=== PATIENT | female | born 1960 | race Caucasian/White ===

== ENCOUNTER 2020-01-04 17:57 | Inpatient (IN) | payer OTHER ==
[~2020-01-04] VITALS: Ht 165.1 cm; Wt 88.5 kg
--- NOTE | ~2020-01-04 | O ---
[facility] [place] [address] OPERATIVE REPORT Name: MAICO ESCALONA Room #: 464-P ADM IN M.R.#: [id number] Admission: 01/04/20 Attend Phys: Stanley Bean MD Discharge: Date of : 58 Report #: [id number] THIS REPORT FOR: cc: ATIF - Nataliya family physician/PCP ATIF - Nataliya family physician/PCP Dino Carlson MD ~ CC: Stanley SRIVASTAVA physician/PCP DATE OF SERVICE: 01/05/2020 PREOPERATIVE DIAGNOSIS: Left perirectal abscess. POSTOPERATIVE DIAGNOSIS: Left perirectal abscess. OPERATION: Incision and drainage of ischiorectal abscess. SURGEON: Dino Carlson MD ANESTHESIA: General. ESTIMATED BLOOD LOSS: Minimal. SPECIMEN: None. DESCRIPTION OF PROCEDURE: After informed consent was obtained, the patient was brought to the operating room and placed supine. SCDs were placed and working, preoperative antibiotics were administered, general anesthesia was induced. The patient was placed in the dorsal lithotomy position and the area was then prepped with Betadine. Digital rectal exam was performed. This did not have any rectal involvement. There was an area of fluctuance approximately 3 cm from the anal verge on the left side. This was incised with cautery. A 2 x 2 cm elliptical skin incision was removed. Pus was expressed. Loculations were broken up bluntly. This did extend down to the ischium. The area was then copiously irrigated and then was packed with iodoform gauze. Sterile dressings were applied. COMPLICATIONS: None. DISPOSITION: The patient was taken to recovery in satisfactory condition. By: [id number] Dino Carlson MD /nt
--- NOTE | ~2020-01-04 | O ---
[facility] [place] [address] OPERATIVE REPORT Name: MAICO ESCALONA Room #: 464-P ADM IN M.R.#: [id number] Admission: 01/04/20 Attend Phys: Stanley Bean MD Discharge: Date of : 58 Report #: [id number] THIS REPORT FOR: cc: ATIF - Nataliya family physician/PCP ATIF - No family physician/PCP Dino Carlson MD ~ CC: Stanley SRIVASTAVA physician/PCP DATE OF SERVICE: 01/08/2020 PREOPERATIVE DIAGNOSIS: Right gluteal abscess. POSTOPERATIVE DIAGNOSIS: Right gluteal abscess. OPERATION: Incision and drainage of right gluteal abscess. SURGEON: Dino Carlson MD ANESTHESIA: General. ESTIMATED BLOOD LOSS: Minimal. SPECIMEN: None. DESCRIPTION OF PROCEDURE: After informed consent was obtained, the patient was brought to the operating room and placed supine. SCDs were placed and working, preoperative antibiotics were administered, general anesthesia was induced. The patient was placed in the dorsal lithotomy position. She had an area of fluctuance near the coccyx on the right side. A 3 x 3 cm cruciate incision was made. Cautery dissection was made down through the subcutaneous tissue. There was some edema fluid, but there was no richy pus. Loculations were broken up with a clamp. The area was then packed with sterile gauze. Sterile dressings were applied. COMPLICATIONS: None. DISPOSITION: The patient was taken to recovery in satisfactory condition. By: 1159 [id number] Dino Carlson MD /ayna
[~2020-01-04 17:57] MED LIST: IMDUR 60 MG TAB60 M1 PO; LISINOPRIL20 MG PO; LOPRESSOR50 PO; PREDNISONE 20 M20 MG PO
[2020-01-04 18:06] VITALS: BP 200/87
[2020-01-04] MEDS ORDERED: NOVOLIN 70100 UNIT/1 SUBQ (18:11)
[2020-01-04 19:23] LABS: HEMOGLOBIN 14.3 gm/dL (12.0-15.0); MCH 30.5 pg (26.0-34.0); MCHC 33.9 g/dL (28.0-37.0); MCV 89.8 fL (80.0-100.0); PLATELET COUNT 306 thou/uL (150-400); RBC 4.68 mil/uL (4.20-5.00); RDW 13.4 % (10.5-14.5); WBC 16.1 thou/uL (4.0-11.0)
[2020-01-04 19:37] LABS: ANION GAP 8 mmol/L (7-16); BUN 17 mg/dL (7-18); CALCIUM 8.9 mg/dL (8.5-10.1); CHLORIDE 98 mmol/L (98-107); CO2 25 mmol/L (21-32); GLUCOSE 392 mg/dL (74-106); POTASSIUM 3.9 mmol/L (3.5-5.1); SODIUM 131 mmol/L (136-145)
[2020-01-04 19:43] LABS: SGOT 13 U/L (15-37); SGPT 13 U/L (30-65); TOTAL BILIRUBIN 0.5 mg/dL (0.2-1.0); TOTAL PROTEIN 7.4 g/dL (6.4-8.2)
[2020-01-04 19:44] LABS: ABSOLUTE NEUTROPHILS 13.4 thou/uL (1.4-8.2); LARGE PLATELETS FEW; PLATELET ESTIMATE NORMAL
[2020-01-04 19:53] LABS: DIRECT BILIRUBIN < 0.1 mg/dL (<0.1-0.2)
[2020-01-04 22:36] LABS: CHOLESTEROL 159 mg/dL (<200); HDL CHOLESTEROL 27 mg/dL (>40); LDL CHOLESTEROL 111 mg/dL (<100); TC:HDL 5.9 Ratio (Not establshd); TRIGLYCERIDE 108 mg/dL (<150); VLDL 22 mg/dL (<40)
[2020-01-04 22:56] LABS: SERUM ASSESSMENT Clear
[2020-01-04 23:20] VITALS: BP 155/77
[2020-01-05] MEDS ORDERED: UNICOMPLEX M TA1 TA1 PO (02:05)
[2020-01-05] MEDS ORDERED: SIMVASTATIN80 MG PO (02:07)
[2020-01-05 05:13] VITALS: BP 169/89
[2020-01-05 05:38] LABS: BASOPHILS 0.7 % (0.0-2.0); EOSINOPHILS 1.7 % (0.0-3.0); HEMOGLOBIN 12.6 gm/dL (12.0-15.0); MCH 30.1 pg (26.0-34.0); MCHC 33.2 g/dL (28.0-37.0); MCV 90.6 fL (80.0-100.0); MONOCYTES 7.8 % (1.0-8.0); PLATELET COUNT 291 thou/uL (150-400); POLYS 81.8 % (36.0-66.0); RBC 4.19 mil/uL (4.20-5.00); RDW 13.4 % (10.5-14.5); WBC 15.9 thou/uL (4.0-11.0)
[2020-01-05 06:09] LABS: CALCIUM 8.2 mg/dL (8.5-10.1); CREATININE 0.6 mg/dL (0.6-1.0); MAGNESIUM 1.8 mg/dL (1.8-2.4); POTASSIUM 3.9 mmol/L (3.5-5.1)
--- NOTE | 2020-01-05 08:44 | NUR ---
ADMIT PT ADMITTED WITH RIGHT AND LEFT BUTTOCK ABSCESSES. RATING PAIN AN 8 TAKING HYDROCODONE AND MORPHINE WITH EFFECT. PICTURES TAKEN WOUNDS CIRCULAR FLAT DRAINING BLOODY PURULENT DRAINAGE AND SOME SEROUS DRAINAGE, OPEN TO AIR CLEANSED WITH SALINE. PT UP AD OLVIN IV FLUIDS INFUSING WITHOUT DIFFICULTY.
[2020-01-05 09:22] VITALS: BP 133/74
--- NOTE | 2020-01-05 16:25 | NUR ---
PT ADMITTED RELATED TO GLUTEAL FOLD CELLULITIS. CM REVIEWED CHART AND SPOKE WITH CARE TEAM. CM CALLED AND SPOKE WITH PT AT BEDSIDE THIS DAY. PT IS A&O X4. CM ROLE INTRODUCED. PT INDICATED SHE LIVES IN AN APARTMENT WITH HER SPOUSE WITH 5 STEPS TO ENTER AND NONE INSIDE. 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 PT INDICATED SHE HAS A CANE FOR USE UPON DC. PT INDICATED SHE DOESN'T HAVE A PCP AND THAT SHE IS CURRENTLY UNINSURED. SHE STATED SHE STARTS A NEW JOB ON WEDNESDAY AND ANTICPATES SHE WILL GET INSURANCE ONCE ABLE THROUGH EMPLOYER. PT INDICATED SHE WOULD APPRECIAT ASSITANCE WITH MEDS UPON DC. PT RECEPTIVE TO [facility] PACKET. CM FOLLOWING REGARDING DC PLANNING.
--- NOTE | 2020-01-05 16:59 | NUR ---
Assumed pt care at 7am.Pt in bed frustrated about perirectal abscess.Pain med given by noc rn at the beginning of shift with relief.Assessment completed. vss.Pt bp reading this am was better.Pt tolerated am meds.Dr Roman and Lorenza here,order noted.Pt kept npo for i&d scheduled for this evening.Po pain med given before pt left for surgery at 1610 per cart.Will continue to monitor.
--- NOTE | 2020-01-05 19:15 | NUR ---
Pt. returned from the recovery room via staff. She is alert and oriented. Dressing to her antoni-rectal area is intact. VSS. Up to the bathroom with standby assistance. C/o antoni-rectal pain and po pain med given (see emar).
[2020-01-05 19:25] VITALS: BP 118/52
[2020-01-05 19:40] VITALS: BP 143/64
[2020-01-05 20:25] VITALS: BP 115/59
[2020-01-05 21:25] VITALS: BP 104/59
[2020-01-06 00:06] LABS: GLYCOHEMOGLOBIN (HGB A1C) 11.4 % (4.8-5.6)
[2020-01-06 02:07] LABS: GLYCOHEMOGLOBIN (HGB A1C) 11.6 % (4.8-5.6)
[2020-01-06 05:00] VITALS: BP 127/65
[2020-01-06 05:43] LABS: HEMATOCRIT 35.7 % (37.0-47.0); HEMOGLOBIN 11.8 gm/dL (12.0-15.0); MCV 90.9 fL (80.0-100.0); RBC 3.93 mil/uL (4.20-5.00); RDW 13.2 % (10.5-14.5); WBC 16.7 thou/uL (4.0-11.0)
[2020-01-06 05:56] LABS: CALCIUM 8.6 mg/dL (8.5-10.1); CREATININE 0.7 mg/dL (0.6-1.0); POTASSIUM 4.3 mmol/L (3.5-5.1)
[2020-01-06 07:00] VITALS: BP 140/65
--- NOTE | 2020-01-06 11:40 | HC ---
[facility] [place] [address] CONSULTATION Name: MAICO ESCALONA Room #: 464-P ADM IN M.R.#: [id number] Admission: 01/04/20 Attend Phys: Stanley Bean MD Discharge: Date of : 58 Report #: [id number] THIS REPORT FOR: cc: ATIF An family physician/PCP ATIF An family physician/PCP Malcolm Marrufo MD ~ CC: Stanley SRIVASTAVA physician/PCP DATE OF SERVICE: 01/05/2020 CONSULTING PHYSICIAN: Dr. Bean. REASON FOR CONSULTATION: Uncontrolled type 2 diabetes mellitus, hyperglycemia. HISTORY OF PRESENT ILLNESS: This is a 59-year-old female patient whose medical background is significant for multiple medical issues including type 2 diabetes mellitus, hypertension, hyperlipidemia, obesity, as well as significant coronary artery disease. The patient presented to the ER yesterday due to worsening boils over the left gluteal region that have gotten worse over the past week or so. She started having low-grade fever and chills in association with these boils, which led her to present here. She was admitted for further care and monitoring. The patient has been diagnosed with type 2 diabetes mellitus about 5 years ago. She has had limited therapeutic options due to the lack of health care coverage and is currently utilizing Humulin 70/30 insulin at a dose of 20 units b.i.d. The patient recalls that metformin had caused severe GI side effects in the past. The patient is not aware of diabetic retinopathy or nephropathy issues, but does report intermittent difficulties with peripheral diabetic neuropathy. The patient had an CT in 2004 and ended up with 5 stents back then. She ended up having a major coronary event in February 2019 and was considered for CABG, but proved to be an inappropriate candidate for this and ended up with [address]. She is also hypertensive and is maintained on metoprolol and lisinopril. She has hyperlipidemia and is maintained on simvastatin 40 mg daily. REVIEW OF SYSTEMS: CONSTITUTIONAL: Low-grade fever, chills, fatigue. No changes in body weight. HEENT: Negative for sore throat, sinus pain or ear drainage. PULMONARY: No shortness of breath, cough or hemoptysis. CARDIAC: Negative for chest pain, palpitations, syncope or presyncope. GASTROINTESTINAL: Negative for abdominal pain, nausea, vomiting or changes in bowel movement frequency. [facility] [address] [place] [address] CONSULTATION Name: MAICO ESCALONA Room #: 464-P [facility] IN ..#: [id number] Admission: 01/04/20 Attend Phys: Stanley Bean MD Discharge: Date of : 58 Report #: [id number] NEUROLOGY: Negative for loss of consciousness, seizure activities, frequent severe headaches, but the patient has baseline neuropathy issues as noted above. PSYCHIATRIC: Negative for delusions, hallucinations. Otherwise, review of system is noncontributory unless mentioned in HPI. PAST MEDICAL HISTORY: 1. Type 2 diabetes mellitus. 2. Peripheral diabetic neuropathy. 3. Hypertension. 4. Hyperlipidemia. 5. Coronary artery disease, status post multiple cardiac stents. 6. Obesity. OUTPATIENT MEDICATIONS: Lisinopril 20 mg daily, metoprolol 50 mg daily, Imdur 60 mg daily, Novolin 70/30 insulin at a dose of 20 units b.i.d., simvastatin 40 mg daily. ALLERGIES: No known drug allergies. FAMILY HISTORY: Noncontributory. 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 Denies use of tobacco, alcohol or illicit drugs. PHYSICAL EXAMINATION: GENERAL: Pleasant female patient who is not in apparent pain or distress. VITAL SIGNS: Blood pressure is 133/74 mmHg, heart rate is 65 beats per minute, respiration 18 per minute, temperature 36.8 degrees Celsius. CONSTITUTIONAL: The patient is lying in bed, seems a bit uncomfortable, but not in severe pain or distress. HEENT: Anicteric sclerae. Intact extraocular motions. NECK: Supple, without JVD or thyromegaly. CHEST: Noted for good air entry bilaterally with scattered rales. HEART: Regular rate and rhythm without murmurs or gallops. ABDOMEN: Soft, lax. No guarding. Active bowel sounds. EXTREMITIES: Lower extremity exam is noted for trace edema. No skin breaks or ulcerations. NEUROLOGIC: Awake, alert and oriented to place and person. The remainder of her examination is largely nonfocal. PSYCHIATRY: Pleasant, interactive. Normal mood and affect. LABORATORY RESULTS: The patient had 1 blood glucose reading recorded at 260 mg/dL. Otherwise, sodium 134, potassium 3.9, chloride 101, CO2 19, anion gap of 14, BUN 9, creatinine 0.6, AST 13, total bilirubin 0.5, calcium 8.2, magnesium 1.8, alkaline phosphatase is 110, ALT 13, total protein 7.4, albumin 3.0. [facility] [address] [place] [address] CONSULTATION Name: MAICO ESCALONA Room #: 464-P ADM IN M.[place].#: [id number] Admission: 01/04/20 Attend Phys: Stanley Bean MD Discharge: Date of : 58 Report #: [id number] 102. Lactic acid 1.7. Total cholesterol 159, triglycerides 108, HDL 27, LDL 111. White blood count 15.9, hemoglobin 12.6, hematocrit 38, platelets 291. ASSESSMENT AND PLAN: 1. Type 2 diabetes mellitus. The patient reports an outlook of inadequately controlled type 2 diabetes mellitus, which is made more difficult by her current access and financial limitations. The patient was counseled at length about the pathogenesis of type 2 diabetes mellitus and about the importance of achieving and maintaining adequate glycemic control so as to avoid diabetic complications in the future. The patient is being planned for surgery later today and is being maintained n.p.o. That said, I am eager to get her started on insulin coverage with her blood glucose heading to 260. That said, I will start her on Lantus at 22 units daily starting now as well as coverage with Humalog insulin with 8 units per meal while supporting her with Humalog supplemental scale. Blood glucose monitoring will commence a.c. and at bedtime and further therapeutic adjustments will be made accordingly. I will check a hemoglobin A1c today to better assess her overall level of control. 2. Hypertension. The patient's level of blood pressure control is adequate, she is to continue with current antihypertensive regimen. 3. Hyperlipidemia. The patient is maintained on simvastatin therapy, but with inadequate lipid control given her background of type 2 diabetes mellitus and coronary artery disease. I will convert her to atorvastatin 40 mg daily. 4. Cellulitis. The patient is being prepared for an I and D procedure later today. In the meantime, she is on vancomycin and ceftriaxone. I certainly appreciate this consultation by Dr. Bean. <ELECTRONICALLY SIGNED> By: Malcolm Marrufo MD 01/06/20 1140 1207 [id number] Malcolm Marrufo MD /nt
[2020-01-06 14:54] VITALS: BP 133/66
--- NOTE | 2020-01-06 15:25 | NUR ---
ASSUMED CARE OF THE PT, ASSESSED, PT RESTING IN BED, ASKED FOR PAIN MED FOR BUTTOCK PAIN "01/02", GAVE A NORCO. REVIEWED POC, PT VERBALIZED UNDERSTANDING, CALL LIGHT AT SIDE, WILL MONITOR
--- NOTE | 2020-01-06 15:55 | NUR ---
Assumed pt care at 7am.Assessment completed.vss.Pt in and out of bed independently.Tolerated med and diet.C/o perirectal pain.Meds given as ordered with relief.Dr Bean and Roger here early this shift.Order noted.Blood sugar was on high side today.Additional lantus given later this after per Dr Saba.Perirectak drsg intact and will be change later this evening after seen by Dr Lara.Report off to kinga bernal.
[2020-01-06 20:18] VITALS: BP 132/64
--- NOTE | 2020-01-07 04:01 | NUR ---
ASSUMED CARE OF PT AT 1900HRS. PT AOX4 AND UP AD OLVIN. PT LETS NEEDS BE KNOWN. PT REPORTED SOME PAIN AND WAS TREATED WITH PRN PAIN MEDS. DRESSING CHANGED. ABX TREATMENT CONTINUED. PT WAS ABLE TO GET COMFORTABLE AND SLEEP PART OF THE SHIFT. VSS AND NO S/S OF ACUTE DISTRESS. WILL CONTINUE TO [place] FOR CHANGES
--- NOTE | 2020-01-07 06:01 | HC ---
[facility] [place] [address] CONSULTATION Name: MAICO ESCALONA Room #: 464-P ADM IN M.R.#: [id number] Admission: 01/04/20 Attend Phys: Stanley Bean MD Discharge: Date of : 58 Report #: [id number] THIS REPORT FOR: cc: ATIF - No family physician/PCP ATIF - No family physician/PCP Adrian Duran MD ~ CC: Stanley SRIVASTAVA physician/PCP DATE OF SERVICE: 01/06/2020 INFECTIOUS DISEASE CONSULTATION ATTENDING PHYSICIAN: Dr. Bean. REASON FOR EVALUATION: Left perirectal abscess. HISTORY OF PRESENT ILLNESS: Chart reviewed, patient examined. This is a 59-year-old woman with known diabetes mellitus, presented to the Emergency Room with a brief complaint of increasing perineal pain, noted spontaneous drainage of some purulent material. She had some temperature elevations. She was evaluated including imaging, which raised question of a left perirectal abscess. She did undergo operative debridement, which was confirmatory, noted extended down to the ischium. She has been started on broad-spectrum therapy with vancomycin and ceftriaxone. She is clinically much improved over the course of last 24 hours. Denies significant pulmonary complaints. She has good appetite, has not been febrile over the last several hours. ALLERGIES: None known. MEDICATIONS: Include insulin, famotidine, lisinopril, isosorbide mononitrate, atorvastatin, metoprolol, ceftriaxone, vancomycin, p.r.n. analgesics and antiemetics. PAST MEDICAL HISTORY: Diabetes mellitus, history of hypertension, hyperlipidemia, has known atherosclerotic coronary artery disease, previous stenting. SOCIAL HISTORY: Former smoker. No ethanol. No illicit drug use. FAMILY HISTORY: Noncontributory. REVIEW OF SYSTEMS: As above. PHYSICAL EXAMINATION: GENERAL: She is alert, cooperative, appropriate. She appears reasonably well [facility] [address] [place] [address] CONSULTATION Name: MAICO ESCALONA Room #: 464-P [facility]#: [id number] Admission: 01/04/20 Attend Phys: Stanley Bean MD Discharge: Date of : 58 Report #: [id number] nourished, mild distress. VITAL SIGNS: Temperature 97.6, pulse 78, respirations 17, blood pressure 140/65. SKIN: Warm, dry, no rashes. HEENT: Normocephalic. Extraocular muscles intact. NECK: Supple. LUNGS: Otherwise clear breath sounds. HEART: Regular. I do not appreciate murmur. ABDOMEN: Soft, nontender. Perineal dressing was not disturbed. GENITORECTAL: Deferred. LABORATORY DATA: Blood cultures are sterile thus far. Most recent electrolytes: Sodium 134, potassium 4.3, chloride 102, bicarbonate is 21, anion gap of 11, BUN and creatinine 14 and 0.7. CBC: White count 16.7, H and H 11.8 and 35.7, platelets 279. Hemoglobin A1c is elevated at 11.6. Estimated average glucose of 286. Reviewed operative report. Coronavirus screening was negative. ASSESSMENT AND PLAN: Left perirectal abscess. We will continue current therapy. It is not entirely clear whether this is primarily a progression from superficial to deeper "outside, in or vice versa." There is no evidence I can tell there is a primary colonic initial source. At this point, she is not overtly toxic. We will wait for results. Continue to monitor expectantly. Add incentive spirometry to optimize her nutritional status. Wound care as prescribed by Surgery. <ELECTRONICALLY SIGNED> By: Adrian Duran MD 01/07/20 0601 [id number] 1101 Adrian Duran MD /nt
[2020-01-07 09:00] VITALS: BP 153/77
--- NOTE | 2020-01-07 11:28 | NUR ---
DR DOLL HERE TO SEE PATIENT LOOKED AT GLUTEAL CLEFT WOUND LEFT BUTTOCK WANTS THIS NURSE TO CALL DR PRECIADO OR GROUP TO ALSO LOOK AT HE THIMKS IT NEEDS TO BE OPENED. CALL TO DR PRECIADO.
[2020-01-07 18:28] VITALS: BP 156/76
[2020-01-07 19:47] VITALS: BP 152/76
[2020-01-07 23:05] VITALS: BP 152/76
[2020-01-08 06:08] LABS: HEMATOCRIT 32.7 % (37.0-47.0); HEMOGLOBIN 11.2 gm/dL (12.0-15.0); MCH 30.7 pg (26.0-34.0); MCHC 34.4 g/dL (28.0-37.0); MCV 89.3 fL (80.0-100.0); RBC 3.66 mil/uL (4.20-5.00); RDW 13.5 % (10.5-14.5); WBC 11.3 thou/uL (4.0-11.0)
--- NOTE | 2020-01-08 07:48 | NUR ---
PT AOX4. PT REPORTING PAIN IN GLUTEAL CLEFT. PT RECEIVING PRN IV MORPHINE Q3HR AND PRN PO NORCO Q4HR. PT ASSESSED WITH 100.0 TEMP. MANAGER SCHEDULING PROVIDER NOTIFIED, RECEIVED ORDER FOR PO APAP 650MG Q6HR PRN FOR PAIN/FEVER. PT TOLERATING PO INTAKE OF FLUIDS, NPO AT MIDNIGHT. PT EXPERIENCING BREAKTHROUGH PAIN AFTER MIDNIGHT. MANAGER SCHEDULING PROVIDER NOTIFIED, RECEIVED ORDER FOR PT TO BE NPO WITH SIPS OF WATER FOR MEDS. PT AMBULATING TO BATHROOM WITH STANDBY ASSIST. PT INDEPENDENT WITH REPOSITIONING, FREQUENT REPOSITIONING ENCOURAGED. PT ENCOURAGED TO NOTIFY STAFF FOR ALL NEEDS. CALL LIGHT WITHIN REACH, BED IN LOWEST POSITION. WILL CONTINUE TO MONITOR.
[2020-01-08 08:00] VITALS: BP 161/83
--- NOTE | 2020-01-08 09:21 | NUR ---
Assess due to dx of gluteal abscess which has required I/D on 01/04. Hx diabetes about 5 yrs, poorly controlled with A1C of 11.6%. Endocronologist has been following, changed insulin requirements and BG significantly improving 86-143. Pt voices good appetite, no significant wt changes, and no questions regarding diet for diabetes. 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 Eating high protein foods. Low nutrition risk
--- NOTE | 2020-01-08 11:26 | NUR ---
Assumed pt care at 7am.Pt in bed very anxious about going to surgery today for additional i&d of perirectal abscess.Medicated pt with both po and iv pain med with partial relief.Dr Saba here,order noted.At 1030,pt left surgery accompanied by or tech.Will continue to monitor.
[2020-01-08 14:30] VITALS: BP 181/92
--- NOTE | 2020-01-08 15:28 | NUR ---
CARE TEAM INDICATED THAT PT IS HAVING I&D OF RIGHT CLUTEAL ABSESSES THIS DAY. IT IS ANTICPATED THAT PT MAY BE MEDICALLY STABLE TO DC HOME TOMORROW. PT WILL LIKELY NEED ASSISTANCE IN FILLING MEDS UPON DC. CM TO FOLLOW INDICATED WITH DC PLANNING.
[2020-01-08 15:30] VITALS: BP 127/63
[2020-01-08 16:30] VITALS: BP 122/67
[2020-01-08 19:59] VITALS: BP 158/76
[2020-01-08 20:01] VITALS: BP 158/76
--- NOTE | 2020-01-09 04:07 | NUR ---
PROGRESS PT A/O X4. VSS IV TO RIGHT FOREARM INFUSING IVF'S WITHOUT DIFFICULTY. UP AD OLVIN TO BATHROOM VOIDING QS. HAD A BM EARLIER IN THE DAY HAD INCISION AND DRAINAGE TO GLUTEAL CLEFT [address] ARE[address], CLEFT NOT MACERATED IT WAS ON PRIOR SHIFT CONTINUE POC..
[2020-01-09] MEDS ORDERED: HYDROCODON-ACE1 EAC7 PO (08:20)
[2020-01-09] MEDS ORDERED: LISINOPRIL20 MG PO (08:20)
[2020-01-09] MEDS ORDERED: LOPRESSOR50 PO (08:20)
[2020-01-09] MEDS ORDERED: KEFLEX500 M1 PO (08:24)
[2020-01-09 09:35] VITALS: BP 170/70
[2020-01-09 11:04] VITALS: BP 170/70
[2020-01-09] MEDS ORDERED: NOVOLIN 70100 UNIT/1 SUBQ (13:53)
[2020-01-09] MEDS ORDERED: LANTUS SUBQ ×2 (14:22→14:26)
[2020-01-09] MEDS ORDERED: HUMALOG100 UNIT/1 SUBQ ×2 (14:26)
--- NOTE | 2020-01-09 15:05 | NUR ---
CARE TEAM INDICATED THAT PT IS MEDICALLY STABLE TO DC HOME THIS DAY. CM VOUCHERED PT'S MEDS KEFLEX, LISINOPRIL, AND METOPROLOL AT THE COST OF $28.37. PT INDICATED THAT SHE HAD BEEN GETTING HER INSULIN AT [facility] AND THAT SHE CAN/WILL CONTINUE TO DO SO. PT PROVIDED INFO ABOUT [facility] AT [facility] AND GIVEN A [facility] PACKET. PT INDICATED SPOUSE CAN ASSIST WITH DRESSING CHANGES UPON DC. NO OTHER CM INTERVENTION INDICATED. CASE CLOSED.
--- NOTE | 2020-01-09 15:30 | NUR ---
Assumed pt care at 7am.Pt in nand out of bed to bathroom and hallways independently.Assessment completed.vss.Pt tolarated meds and diet.Dr Bean here early this shift.Dc order noted.Pt wanted to see wound care before dc home. Dr Obrien here,additional order noted.Wound picture taken by broomcorn press feeder. drsg supplies given to pt for home use.At 1530,pt dc home per wc .
--- NOTE | 2020-01-17 08:07 | HC ---
[facility] [place] [address] CONSULTATION Name: MAICO ESCALONA Room #: 464-P [facility] IN M.R.#: [id number] Admission: 01/04/20 Attend Phys: Stanley Bean MD Discharge: 01/09/20 Date of : 58 Report #: [id number] THIS REPORT FOR: cc: ATIF - Nataliya family physician/PCP ATIF - No family physician/PCP Wei Jurado MD ~ CC: Stanley SRIVASTAVA physician/PCP DATE OF SERVICE: 01/05/2020 WOUND CARE CONSULTATION PERSONAL PHYSICIAN: Not on staff. CHIEF COMPLAINT: Gluteal wounds. HISTORY OF PRESENT ILLNESS: This is a 59-year-old white female with history of diabetes, who states over the past several days, she has had persistent pain and swelling in her left gluteal fold and paracoccygeal region. The patient states that she has had previous history of gluteal abscesses which she was able to treat by herself with topical treatments and Epsom salt baths. She tried this past week and things seemed to get worse instead of better. The patient states as of yesterday, the pain got so bad, she came to the Emergency Department to be evaluated. The patient was found on a CAT scan to have infection in her bilateral gluteal cleft regions and cellulitis extending up into the paracoccygeal region. There was no sign of any obvious abscesses. The patient was admitted for IV antibiotics, surgical evaluation and wound care evaluation. The patient states she has no other wounds on her body. The patient denies any other history of wounds that would not heal on their own. PAST MEDICAL HISTORY: Significant for coronary artery disease with multiple coronary artery stents, hypertension and diabetes. CURRENT MEDICATIONS: Multiple including metoprolol, lisinopril, Imdur, and Novolin. DRUG ALLERGIES: None. SOCIAL HISTORY: The patient has a history of former smoking, quitting approximately 20 years ago. Denies alcohol use. FAMILY HISTORY: Not pertinent to current medical condition. REVIEW OF SYSTEMS: CONSTITUTIONAL: The patient states she had a low-grade fever and associated [facility] [address] [place] [address] CONSULTATION Name: MAICO ESCALONA Room #: 464-P [facility] IN M.R.#: [id number] Admission: 01/04/20 Attend Phys: Stanley Bean MD Discharge: 01/09/20 Date of : 58 Report #: [id number] chill in the past 24 hours. EYES: No complaints. ENT: No complaints. NEUROLOGIC: The patient denies headache, numbness, tingling, denies weakness in arms or legs. CARDIAC: The patient denies chest pain, palpitations, or peripheral edema. RESPIRATORY: The patient denies shortness of breath, cough or wheezes. GASTROINTESTINAL: The patient denies nausea, vomiting or abdominal pain. GENITOURINARY: The patient denies urgency or frequency. MUSCULOSKELETAL: No complaints. SKIN: There are multiple wounds in the bilateral gluteal cleft region. PHYSICAL EXAMINATION: VITAL SIGNS: The patient is afebrile. BP is 133/74, heart rate is 88, respirations 18. GENERAL: This is an alert and oriented x 3, pleasant white female who is in mild distress secondary to pain. HEENT: Normocephalic, atraumatic. Mucous membranes are moist. Pupils are round. Sclerae are white. NECK: Supple, nontender. LUNGS: Clear. HEART: Regular. ABDOMEN: Soft, nontender. Evaluation of gluteal region reveals extensive subcutaneous edema with purulent drainage coming from multiple sites, exquisitely tender left gluteal cleft more than right. There is increased erythema, warmth to the sites. EXTREMITIES: The patient moves all extremities without difficulty. Bilateral heels are intact. NEUROLOGIC: Cranial nerves 2-12 are grossly intact. Motor and sensory are grossly intact. LABORATORY VALUES: White count 15.9, hemoglobin 12.6, BUN 9, creatinine 0.6, albumin 3.0. IMPRESSION: 1. Multiple gluteal wounds with associated cellulitis. 2. Diabetes mellitus type 2. 3. Coronary artery disease. 4. Hypertension. 5. Protein-calorie malnutrition -- mild with an albumin of 3.0. 6. Generalized debility. PLAN: At this time, we will start morphine, Silvadene cream to the gluteal wounds, cover with a Xeroform and an ABD twice daily. General Surgery is consulted to see the patient for debridement of these gluteal wounds. We will order a low air loss mattress for the patient, to have her turned every [address] [address] CONSULTATION Name: MAICO ESCALONA Room #: 464-P [facility] IN M.R.#: [id number] Admission: 01/04/20 Attend Phys: Stanley Bean MD Discharge: 01/09/20 Date of : 58 Report #: [id number] We will make sure we maximize oral protein supplementation for healing. We will utilize physical and occupational therapy as the patient is able. We will continue all medicines including IV antibiotics. I appreciate ability to consult and we will continue to follow the patient. <ELECTRONICALLY SIGNED> By: Wei Jurado MD 01/17/20 0807 1311 1603 Wei Jurado MD /nt
== END 2020-01-09 16:10 | disposition home or self-care (01) | DRG 854 ==
LOC: ER 17:57 → 4W 21:38 → EROBS 21:38 → 4W 01-05 00:31
PROVIDERS: Emergency Medicine; Internal Medicine; Nurse Practitioner Family; Surgery; ADMIT Hospitalist; ATTEND Hospitalist
PROC: 0D9P0ZZ Drainage of Rectum, Open Approach (ICD-10-PCS; principal; 2020-01-05)
PROC: 0J990ZZ Drainage of Buttock Subcutaneous Tissue and Fascia, Open Approach (ICD-10-PCS; 2020-01-08)
DX: A41.9 Sepsis, unspecified organism (principal); L03.317 Cellulitis of buttock; K61.1 Rectal abscess; E44.0 Moderate protein-calorie malnutrition; I10 Essential (primary) hypertension; E11.9 Type 2 diabetes mellitus without complications; I25.10 Atherosclerotic heart disease of native coronary artery without angina pectoris; Z95.5 Presence of coronary angioplasty implant and graft; E78.5 Hyperlipidemia, unspecified; E11.42 Type 2 diabetes mellitus with diabetic polyneuropathy; E66.9 Obesity, unspecified; Z68.32 Body mass index [BMI] 32.0-32.9, adult; Z87.891 Personal history of nicotine dependence; E11.65 Type 2 diabetes mellitus with hyperglycemia; D25.9 Leiomyoma of uterus, unspecified
CPT/HCPCS: 10040; 50010; 50101; 50386; 50445; 62110; 62900; 70005

== ENCOUNTER 2020-03-06 17:52 | Inpatient (IN) | payer OTHER ==
[~2020-03-06] VITALS: Ht 165.1 cm; Wt 88.0 kg
--- NOTE | ~2020-03-06 | O ---
[facility] [place] [address] OPERATIVE REPORT Name: MAICO ESCALONA Room #: 210-P ADM IN M.R.#: [id number] Admission: 03/06/20 Attend Phys: Nya Britt MD Discharge: Date of : 58 Report #: [id number] THIS REPORT FOR: cc: ATIF - No family physician/PCP ATIF - No family physician/PCP Dino Carlson MD ~ CC: Nya SRIVASTAVA physician/PCP DATE OF SERVICE: 03/08/2020 PREOPERATIVE DIAGNOSIS: Right vulvar abscess. POSTOPERATIVE DIAGNOSIS: Right vulvar abscess. OPERATION: Incision and drainage of right vulvar abscess. SURGEON: Dino Carlson MD ANESTHESIA: General. ESTIMATED BLOOD LOSS: Minimal. SPECIMEN: None. DESCRIPTION OF PROCEDURE: After informed consent was obtained, the patient was brought to the operating room and placed supine. SCDs were placed and working, general anesthesia was induced. The patient's right leg was frog-legged. The area was then prepped and draped in the usual sterile fashion. A 15 blade was used to make a 2 cm incision over the area of fluctuance. Cautery was used to dissect down through the subcutaneous tissue. A small abscess cavity was encountered. This was irrigated. Loculations were broken up with a clamp. It was then packed with sterile gauze. Sterile dressings were applied. COMPLICATIONS: None. DISPOSITION: The patient was taken to recovery in satisfactory condition. By: [id number] Dino Carlson MD /ayan
[~2020-03-06 17:52] MED LIST changes: +HUMALOG100 UNIT/1 SUBQ; +HYDROCODON-ACE1 EAC7 PO; +KEFLEX500 M1 PO; +LANTUS SUBQ; +NOVOLIN 70100 UNIT/1 SUBQ; +SIMVASTATIN80 MG PO; +UNICOMPLEX M TA1 TA1 PO
[2020-03-06 18:00] VITALS: BP 156/81
[2020-03-06 19:21] LABS: ABSOLUTE NEUTROPHILS 9.4 thou/uL (1.4-8.2); BASOPHILS 0.8 % (0.0-2.0); EOSINOPHILS 1.7 % (0.0-3.0); HEMATOCRIT 44.9 % (37.0-47.0); HEMOGLOBIN 15.2 gm/dL (12.0-15.0); LYMPHOCYTES 17.4 % (24.0-44.0); MCH 30.1 pg (26.0-34.0); MCV 88.5 fL (80.0-100.0); MONOCYTES 5.8 % (1.0-8.0); PLATELET COUNT 271 thou/uL (150-400); POLYS 74.3 % (36.0-66.0); RBC 5.07 mil/uL (4.20-5.00); RDW 13.2 % (10.5-14.5); WBC 12.6 thou/uL (4.0-11.0)
[2020-03-06 19:32] LABS: CALCIUM 9.4 mg/dL (8.5-10.1); CREATININE 0.7 mg/dL (0.6-1.0); POTASSIUM 3.8 mmol/L (3.5-5.1)
[2020-03-06 19:42] LABS: ALBUMIN 3.5 g/dL (3.4-5.0); DIRECT BILIRUBIN 0.1 mg/dL (<0.1-0.2); TOTAL BILIRUBIN 0.7 mg/dL (0.2-1.0); TOTAL PROTEIN 7.9 g/dL (6.4-8.2); TROPONIN-I 0.25 ng/mL (<0.06)
[2020-03-06 20:55] VITALS: BP 183/93
[2020-03-06 21:53] LABS: PROTIME 10.5 Seconds (9.3-11.4)
[2020-03-06 21:58] LABS: CHOLESTEROL 215 mg/dL (<200); HDL CHOLESTEROL 33 mg/dL (>40); LDL CHOLESTEROL 165 mg/dL (<100); SERUM ASSESSMENT Clear; TC:HDL 6.5 Ratio (Not establshd); TRIGLYCERIDE 88 mg/dL (<150); VLDL 18 mg/dL (<40)
--- NOTE | 2020-03-06 22:30 | NUR ---
UNABLE TO START HEPARIN GTTS AT THIS TIME. NO PTT ORDERED. STAT ORDER PLACED IN [place].
[2020-03-07 06:53] LABS: HEMATOCRIT 41.7 % (37.0-47.0); HEMOGLOBIN 14.1 gm/dL (12.0-15.0); MCH 29.9 pg (26.0-34.0); MCHC 33.7 g/dL (28.0-37.0); MCV 88.7 fL (80.0-100.0); RBC 4.7 mil/uL (4.20-5.00); RDW 13.2 % (10.5-14.5); WBC 10.8 thou/uL (4.0-11.0)
[2020-03-07 07:04] LABS: CALCIUM 8.9 mg/dL (8.5-10.1); CREATININE 0.7 mg/dL (0.6-1.0); POTASSIUM 4.2 mmol/L (3.5-5.1)
--- NOTE | 2020-03-07 09:04 | EKG ---
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: SPENCER : 1960 Requested By: Enedina Ramirez Order Number: [id number] MD: Solis Puri Measurements Intervals [place] Rate: 98 P: 55 ME: 169 QRS: -20 QRSD: 79 T: 108 QT: 342 QTc: 437 Interpretive Statements Sinus rhythm Left atrial enlargement Probable LVH with secondary repol abnrm Poor R wave progression No previous ECG available for comparison Electronically Signed On 03-07-2020 9:04:33 CDT by Solis Puri [email or web address] <ELECTRONICALLY SIGNED> By: Solis Puri MD, [facility] 03/07/20 0904 1756 1756 Solis Puri MD, [facility] /EPI
--- NOTE | 2020-03-07 09:08 | EKG ---
[facility] [address] ELECTROCARDIOGRAM REPORT Name: MAICO ESCALONA Room #: 170-10 ADM IN M.R.#: [id number] Admission: 03/06/20 Attend Phys: Ajit Osorio MD Discharge: Date of : 58 Report #: [id number] THIS REPORT FOR: cc: ATIF - Nataliya family physician/PCP ATIF - No family physician/PCP Solis Puri MD [facility] ~ THIS REPORT FOR: //name// [facility] ED Test Date: 2020-03-06 Test Time: 20:15:40 Pat Name: MAICO ESCALONA Department: Room: 170 Gender: F Route Jumper: NILA MCRAE : 1960 Requested By: Enedina Ramirez Order Number: [id number] MD: Solis Puri Measurements Intervals [place] Rate: 96 P: 41 [place]: 163 QRS: -30 QRSD: 80 T: 113 QT: 378 QTc: 478 Interpretive Statements Sinus rhythm Leftward axis Poor R wave progression Nonspecific ST and T wave abnormality Compared to ECG 03/06/2020 17:56:59 No significant changes Electronically Signed On 03-07-2020 9:08:30 CDT by Solis Puri [email or web address] <ELECTRONICALLY SIGNED> By: Solis Puri MD, FAC 03/07/20 09 14 14 Solis Puri MD, FAC /EPI
--- NOTE | 2020-03-07 15:37 | NUR ---
CALLED DR. ADILIA GARAY AND LET HIM KNOW OF NEG. COVID RESULTS
[2020-03-07 15:53] VITALS: BP 112/54
[2020-03-07 15:55] VITALS: BP 109/56
[2020-03-07 16:20] VITALS: BP 136/63
--- NOTE | 2020-03-07 17:47 | NUR ---
PT. ARRIVED ON UNIT DENIES ANY CHEST PAIN AT THIS TIME, ON ROOM AIR. NO SHORTNESS OF BREATH EPORTED, NO WORK OF BREATHING. CONSENTS ON CHART. IV'S FLUSHED. NO INFILTRATION. PT. ATE HER DINNER, WAS 'STARVING, EXPLAINED NOP AFTER MIDNIGHT TONIGHT-AGREED WITH PLAN OF CARE.
[2020-03-07 19:40] VITALS: BP 109/59
[2020-03-07 19:42] LABS: PROTIME 10.1 Seconds (9.3-11.4)
[2020-03-07 19:44] LABS: APTT 25.4 Seconds (24.5-32.8)
[2020-03-08] VITALS (28 sets, daily range): BP systolic 122–165; BP diastolic 53–90
--- NOTE | 2020-03-08 00:56 | NUR ---
HEPARIN STARTED JUST PRIOR TO SHIFT CHANGE. INITIAL APTT AT 25.4 WITH PATIENT COMPLAINING OF CHEST PAIN. NITRO GIVEN FOLLOWED SHORTLY BY MORPHINE WITH PATIENT STATING CHEST PAIN RELIEF. COPYRIGHT EXPERT CALLED WITH ONE TIME ORDER FOR BOLUS OF HEPARIN. NURSE TO RECHECK APTT AT MIDNIGHT 03/08/20 AND USE STANDARD PROTOCOL.
--- NOTE | 2020-03-08 01:00 | NUR ---
ORDERS OBTAINED FROM ID DOCTOR FOR BLOOD CULTURES AND AEROBIC CULTURE OF PATIENTS ABSCESS.
[2020-03-08 04:31] LABS: CALCIUM 8.6 mg/dL (8.5-10.1); CREATININE 0.9 mg/dL (0.6-1.0); POTASSIUM 3.6 mmol/L (3.5-5.1)
[2020-03-08 05:07] LABS: GLYCOHEMOGLOBIN (HGB A1C) 11.5 % (4.8-5.6)
--- NOTE | 2020-03-08 06:45 | NUR ---
PATIENT IS ADVANCING SLOWLY IN HER CARE PLAN. VITAL SIGNS STABLE WITH PATIENT HAVING NO COMPLAINTS OF NAUSEA. PATIENT DID COMPLAIN OF CHEST PAIN TWICE DURING SHIFT WHICH NURSE TREATED APPROPRIATELY THROUGH MEDICATIONS. EKG OBTAINED DURING SECOND COMPLAINT. BREATHING STABLE ON ROOM AIR EVIDENCED BY ASSESSMENTS AND SPOT OXYGENATION CHECKS. PATIENT IS CURRENTLY NPO FOR TODAYS PROCEDURE. CONTINUE PLAN OF CARE.
--- NOTE | 2020-03-08 08:14 | EKG ---
[facility] [place] [address] ELECTROCARDIOGRAM REPORT Name: MAICO ESCALONA Room #: 210-P ADM IN M.R.#: [id number] Admission: 03/06/20 Attend Phys: Nya Britt MD Discharge: Date of : 58 Report #: [id number] THIS REPORT FOR: cc: FAM - No family physician/PCP FAM - No family physician/PCP Arsalan Hanson MD ~ THIS REPORT FOR: //name// 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: GRABIEL ELDRIDGE : 1960 Requested By: Solis Puri Order Number: [id number] MD: Arsalan Hanson Measurements Intervals [place] Rate: 73 P: 51 [place]: 171 QRS: -24 QRSD: 81 T: 153 QT: 409 QTc: 451 Interpretive Statements Sinus rhythm Probable LVH with secondary repol abnrm Compared to ECG 03/06/2020 20:15:40 Left-axis deviation no longer present Poor R-wave progression no longer present ST (T wave) deviation no longer present Electronically Signed On 03-08-2020 8:14:20 CDT by Arsalan Hanson [email or web address] <ELECTRONICALLY SIGNED> By: Arsalan Hanson MD 03/08/20813 9 9 Arsalan Hanson MD /EPI
--- NOTE | 2020-03-08 09:59 | CATHLAB ---
[facility] [place] [address] INVASIVE PROCEDURE REPORT Name: MAICO ESCALONA Room #: 210-P ADM IN M.R.#: [id number] Admission: 03/06/20 Attend Phys: Nya Britt MD Discharge: Date of : 58 Report #: [id number] THIS REPORT FOR: cc: FAM - No family physician/PCP FAM - No family physician/PCP Solis Puri MD [facility] ~ APPROVED REPORT Study performed: 03/08/2020 08:29:20 Patient Details Patient Status: In-Patient Room #: 210 The patient is a 59 year-old female Event Personnel Solis Puri Hide Trimmer, Alex Swanson RN RN, Sada Rivas RTR, SECURITY SYSTEM INSTALLER Monitor, Eufemia Mejia Scrub, Makenzie Rose RTR Scrub Procedures Performed Art Access - L femoral artery* Left Heart Cath w/or w/o Coronaries [id number] [facility] [address] Initial Mod Sed Same Phys/QHP Gr 060696 40164 Mod Sed Same Phys/QHP Ea [id number] Hemostasis w/ Mynx Indication Chest pain Procedure Narrative The Left Groin^ was infiltrated with 1% Lidocaine subcutaneous anesthesia. A PINNACLE 6FR Sheath #[id number] sheath was inserted into the LFA^. Coronary angiography was performed using coronary diagnostic catheters. The right coronary system was accessed and visualized with a JR4 catheter. The left coronary system was accessed and visualized with a JL4 catheter. The left ventricle was accessed and visualized with a ANGLED PIGTAIL catheter. Left ventricular/Aortic Valve gradient assessed via catheter pullback. Left ventriculogram was performed in 30 degree projection. Closure device was deployed with a 6 Fr MYNXGRIP 6/7F #[id number]. The patient tolerated the procedure well and there were no complications associated with the procedure. There was no hematoma. Intraoperative Conscious Sedation Sedation start time: 08:30 Case end Time: 09:08 [facility] [place] [address] INVASIVE PROCEDURE REPORT Name: MAICO ESCALONA Room #: 210-P [facility] IN ..#: [id number] Admission: 03/06/20 Attend Phys: Charlene Condon Discharge: Date of : 58 Report #: [id number] Fentanyl 100 mcg Versed 2 mg Fluoro Time: 1.30 minutes Dose: DAP 6107.60 cGycm2 811 mGy Contrast Type and Amount: Omnipaque 115 ml Coronary Angiography The patient's coronary anatomy is right dominant. Diagnostic Cath Left Main Mild left main plaquing LAD 70% proximal stenosis. Severe diffuse disease throughout the distal third of the LAD Diagonal 1 Severe diffuse disease in the proximal portion of the first diagonal branch. This is a small vessel Diagonal 2 75% proximal second diagonal branch stenosis Circumflex Moderate size, nondominant circumflex 95% proximal circumflex stenosis after the first marginal branch, before the second marginal branch OM1 80% proximal OM1 branch stenosis OM2 Mild OM 2 branch plaquing Right Coronary Dominant right coronary with mild 30-40% mid vessel stenosis Severe 95% distal right coronary stenosis R PDA 30-40% proximal PDA stenosis. Relatively small vessel. RPLV Moderate plaquing in the proximal portion of a posterior lateral branch Left Ventriculography The left ventricle is normal in size with normal contractility. The left ventricular ejection fraction is estimated to be 60-65%. Left ventricular wall motion abnormalities are not present. There is no mitral insufficiency. Hemodynamics The aortic pressure is 136/68 mmHg with a mean of 90 mmHg. The left ventricular pressure is 143/12 mmHg with a mean of mmHg. The left ventricular end diastolic pressure is 27 mmHg. Conclusion 1. Normal global and regional left ventricular systolic function. EF 65% 2. Mild left main plaquing [facility] [address] [place] [address] INVASIVE PROCEDURE REPORT Name: MAICO ESCALONA Room #: [address] [place] [address] [place] [facility]#: [id number] Admission: 03/06/20 Attend Phys: Charlene Condon Discharge: Date of : 58 Report #: [id number] 3. Severe multivessel coronary disease. Right coronary dominant circulation <ELECTRONICALLY SIGNED> By: Solis Puri MD, [facility] 03/08/20958 8 8 Solis Puri MD, [facility] /INF
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
--- NOTE | 2020-03-08 12:19 | 2DMMODE ---
[facility] [place] [address] 2 D/M-MODE ECHOCARDIOGRAM Name: MAICO ESCALONA Room #: 210-P ADM IN M.R.#: [id number] Admission: 03/06/20 Attend Phys: Nya Britt MD Discharge: Date of : 58 Report #: [id number] THIS REPORT FOR: cc: FAM - No family physician/PCP FAM - No family physician/PCP Solis Puri MD [facility] ~ APPROVED REPORT Study performed: 03/08/2020 10:58:25 EXAM: Comprehensive 2D, Doppler, and color-flow Echocardiogram Patient Location: Bedside Room #: 210 Status: routine BSA: 1.93 HR: 76 bpm BP: 141/68 mmHg Rhythm: NSR Other Information Study Quality: Good Indications Diabetes Non STEMI Elevated Troponin Hypertension/HDD 2D Dimensions RVDd: 34.04 mm IVSd: 12.89 (7-11mm) LVOT Diam: 17.60 (18-24mm) LVDd: 48.17 mm PWd: 13.43 (7-11mm) Ascending Ao: 27.59 (22-36mm) LVDs: 32.65 (25-40mm) Aortic Root: 28.03 mm IVC: 19.00 mm Volumes Left Atrial Volume (Systole) Single Plane 4CH: 36.35 mL Single Plane 2CH: 35.85 mL LA ESV Index: 20.00 mL/m2 Aortic Valve AoV Peak Jerome.: 1.45 m/s AO Peak Gr.: 8.45 mmHg LVOT Max P.70 mmHg [facility] [address] [place] [address] 2 D/M-MODE ECHOCARDIOGRAM Name: MAICO ESCALONA Room #: 210-P [facility] IN .R.#: [id number] Admission: 03/06/20 Attend Phys: Charlene Condon Discharge: Date of : 58 Report #: [id number] LVOT Max V: 1.08 m/s MARILU Vmax: 1.81 cm2 Mitral Valve E/A Ratio: 0.9 MV Decel. Time: 242.34 ms MV E Max Jerome.: 1.03 m/s MV A Jerome.: 1.14 m/s MV PHT: 70.28 ms IVRT: 147.64 ms Pulmonary Valve PV Peak Jerome.: 1.01 m/s PV Peak Gr.: 4.13 mmHg Pulmonary Vein P Vein S: 0.42 m/s P Vein A: 0.31 m/s P Vein D: 0.29 m/s P Vein A Dur.: 110.7 msec P Vein S/D Ratio: 1.45 Left Ventricle The left ventricle is normal size. There is normal LV segmental wall motion. Mild concentric left ventricular hypertrophy. The left ventricular systolic function is normal. The left ventricular ejection fraction is within the normal range. LVEF is 55-60%. Grade I - abnormal relaxation pattern. Right Ventricle The right ventricle is normal size. The right ventricular systolic function is normal. Atria The left atrium size is normal. The right atrium size is normal. Aortic Valve The aortic valve is normal in structure. No aortic regurgitation is present. There is no aortic valvular stenosis. Mitral Valve The mitral valve is normal in structure. There is no mitral valve regurgitation noted. No evidence of mitral valve stenosis. Tricuspid Valve The tricuspid valve is normal in structure. There is no tricuspid valve regurgitation noted. [facility] [place] [place] [address] 2 D/M-MODE ECHOCARDIOGRAM Name: MAICO ESCALONA Room #: 210-P ADM IN M.R.#: [id number] Admission: 03/06/20 Attend Phys: Charlene Condon Discharge: Date of : 58 Report #: [id number] Pulmonic Valve The pulmonary valve is normal in structure. There is no pulmonic valvular regurgitation. Great Vessels The aortic root is normal in size. IVC is normal in size and collapses >50% with inspiration. Pericardium There is no pericardial effusion. <Conclusion> The left ventricular systolic function is normal. There is normal LV segmental wall motion. Mild concentric left ventricular hypertrophy. LVEF is 55-60%. Mild diastolic dysfunction The aortic valve is normal in structure. No aortic regurgitation or stenosis The mitral valve is normal in structure. No mitral valve regurgitation. Pulmonary artery systolic pressure could not be reliably ascertained There is no pericardial effusion. <ELECTRONICALLY SIGNED> By: Solis Puri MD, [facility] 03/08/208 17 17 Solis Puri MD, FAC /INF
--- NOTE | 2020-03-08 12:27 | HC ---
[facility] [place] [address] CONSULTATION Name: MAICO ESCALONA Room #: 210-P ADM IN M.R.#: [id number] Admission: 03/06/20 Attend Phys: Nya Britt MD Discharge: Date of : 58 Report #: [id number] THIS REPORT FOR: cc: ATIF An family physician/PCP ATIF An family physician/PCP Malcolm Marrufo MD ~ CC: ATIF physician/PCP Ajit Osorio DATE OF SERVICE: 03/07/2020 ENDOCRINE CONSULTATION CONSULTING PHYSICIAN: Dr. Osorio. REASON FOR CONSULTATION: Type 2 diabetes mellitus. HISTORY OF PRESENT ILLNESS: This is a 59-year-old female patient whose medical background is significant for multiple medical issues including type 2 diabetes mellitus, hypertension, hyperlipidemia, as well as extensive CAD history including the placement of 8 or 9 coronary arterial stents in the past including one a year ago. The patient presented with complaints of worsening left-sided chest pain and it was determined that she would need to be admitted for further care and monitoring. The patient's history of type 2 diabetes mellitus dates back to 2004 and she is currently maintained on Lantus insulin 32 units b.i.d. in addition to Humalog insulin taken as per sliding scale, effectively taking 2-4 units 3 times a day. Blood glucose values have ranged predominantly in the 250-350 mg/dL range. She denies issues with hypoglycemia. She is not aware of complications of diabetic retinopathy, nephropathy, but she does have intermittent issues with peripheral diabetic neuropathy affecting her feet. The patient has CAD as noted above. Also, she has hypertension and is maintained on a combination of metoprolol 50 mg b.i.d. and lisinopril 20 mg daily. She is hyperlipidemic and is maintained on simvastatin 40 mg daily. REVIEW OF SYSTEMS: CONSTITUTIONAL: Fatigue, tiredness, but no fever, chills or body weight changes. HEENT: Negative for sore throat, sinus pain or ear drainage. PULMONARY: Occasional shortness of breath and cough, but not hemoptysis. [facility] [address] [place] [address] CONSULTATION Name: MAICO ESCALONA Room #: 210- ADM IN M.R.#: [id number] Admission: 03/06/20 Attend Phys: Nya Britt MD Discharge: Date of : 58 Report #: [id number] CARDIAC: Chest pain. No palpitation, syncope or presyncope. GASTROINTESTINAL: Negative for abdominal pain, nausea, vomiting or changes in bowel movement frequency. NEUROLOGIC: Negative for loss of consciousness, headaches, seizure activity, but noted for baseline, intermittent issues with lower extremity numbness and tingling due to diabetic neuropathy. DERMATOLOGIC: Negative for rash, ulceration, discoloration or other major abnormalities. Otherwise, review of systems is noncontributory other than those mentioned in the HPI. PAST MEDICAL HISTORY: 1. Type 2 diabetes mellitus. 2. Hypertension. 3. Hyperlipidemia. 4. Extensive CAD, had several cardiac stents placed including one a year ago. OUTPATIENT MEDICATIONS: Include: 1. Hydrocodone p.r.n. 2. Metoprolol 50 mg b.i.d. 3. Lisinopril 20 mg daily. 4. Keflex 500 mg b.i.d. 5. Humalog insulin sliding scale, averaging 2-4 units 3 times a day. 6. Lantus insulin 32 units b.i.d. 7. Imdur 60 mg daily. 8. Multivitamin daily. 9. Simvastatin 40 mg daily. ALLERGIES: No known drug allergies. FAMILY HISTORY: Noncontributory. SOCIAL HISTORY: The patient is a smoker, but denies use of alcohol or illicit drugs. 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 PHYSICAL EXAMINATION: GENERAL: Pleasant female patient who is not in apparent pain or distress. VITAL SIGNS: Blood pressure is 101/58 mmHg, heart rate is 79 beats per minute, respirations 25 per minute, temperature 37.2 degrees Celsius. CONSTITUTIONAL: The patient is lying in bed, appears comfortable, not in apparent distress. HEENT: Anicteric sclerae. Intact extraocular motions. NECK: Supple, without JVD, carotid bruits or lymphadenopathy. I do not appreciate thyromegaly. [facility] [address] [place] [address] CONSULTATION Name: MAICO ESCALONA Room #: 210-P ADM IN M.R.#: [id number] Admission: 03/06/20 Attend Phys: Nya Britt MD Discharge: Date of : 58 Report #: [id number] CHEST: Noted for moderate air entry bilaterally with scattered rales. No wheezes or crackles. HEART: Regular rate and rhythm without murmurs or gallops. ABDOMEN: Soft, lax. No tenderness or organomegaly. She has active bowel sounds. EXTREMITIES: Lower extremity exam is negative for ankle edema, skin breaks or ulcerations. NEUROLOGIC: Awake, alert and oriented to time, place and person. The remainder of her examination is nonfocal. PSYCHIATRIC: Pleasant, interactive. Normal mood and affect. LABORATORY DATA: Blood glucose on arrival was 393. The most recent this morning was at 291. Otherwise, sodium 135, potassium 4.2, chloride 108, CO2 of 25, anion gap 10, BUN 14, creatinine 0.7, AST 16, total bilirubin 0.7, direct bilirubin 0.1, calcium 8.9, magnesium 1.8, alkaline phosphatase 117, ALT 19, total protein 7.9, albumin 3.5, EGFR 85. Lactic acid 1.7. Troponin 0.13. Total cholesterol 215, triglycerides 88, HDL 33, LDL 165. INR 1.0. Hemoglobin 14.1, hematocrit 41.7, white blood count 10.8, platelets 245. Hemoglobin A1c in 12/2019 was at 11.6. ASSESSMENT AND PLAN: 1. Type 2 diabetes mellitus. Very much uncontrolled as per her reported blood glucose values as well as her elevated hemoglobin A1c several weeks ago. The patient was counseled at length about the importance of achieving and maintaining adequate glycemic control so as to avoid future diabetic complications. I alluded to the likely significant contribution that severe hyperglycemia has played into her ongoing issues with coronary artery disease. At a glance, the patient's regimen is noted for a fairly inadequate prandial coverage with Humalog insulin. Also, the patient has room to improving her glycemic control as well as improve her protection against future CVD by the inclusion of SGLT-2 inhibitors and/or GLP-1 analogues. However, these are currently blocked by cost issues as she would regain health coverage in 2 months from now. The patient could not tolerate metformin in the past. In the immediate setting, I would like to change the patient's insulin distribution to Lantus insulin 25 units b.i.d. as well as Humalog insulin 12 units t.i.d. a.c. and low-intensity Humalog supplemental scale. Blood glucose monitoring will commence a.c. and at bedtime and further adjustments will be made accordingly. 2. Hypertension. The patient's level of blood pressure control is adequate, continue with the current regimen. [facility] [place] [address] CONSULTATION Name: MAICO ESCALONA Room #: 210-P [facility] IN .R.#: [id number] Admission: 03/06/20 Attend Phys: Nya Britt MD Discharge: Date of : 58 Report #: [id number] 3. Hyperlipidemia. The patient's current lipid panel is indicative of inadequate lipid control. Her LDL is at 165 mg/dL, when in fact, she should be targeting a goal of 55 mg/dL or less. She will need a more potent statin such as rosuvastatin eventually and potentially the inclusion of additional non-statin agents to achieve the goal. 4. Coronary artery disease. Severe, recurrent issue. She presents again with chest pain and is being planned for a coronary angiogram later today. I certainly appreciate this consultation by Dr. Osorio. <ELECTRONICALLY SIGNED> By: Malcolm Marrufo MD 03/08/20 1227 1205 1326 Malcolm Marrufo MD /nt
--- NOTE | 2020-03-08 13:25 | NUR ---
RD consult for pt with diabetes. Admit with STEMI, and hx htn, dm, hld. Pt has had poor diabetes control with A1C of 11.6% in December and repeat A1C of 11.5% this admit. Endocrolonogist managing medications of glargine, lispro with meals and ss insulin coverage. pt obese, bmi 31.6. Last hospitalization in December, pt denied education needs and again does so stating her abcess infection causing BG to be so high. Hungry and wants to eat, but being held npo for now for possible debridement. States may also need stent vs open heart surgery, awaiting decision. Encouraged diet compliance, and offered assistance if pt changes mind about education needs. Low nutrition risk
--- NOTE | 2020-03-08 16:06 | NUR ---
PT ALERT AND ORIENTED. HAD CARDIAC CATH THIS AM WITH NO INTERVENTION. DR. VILLALBA CONSULTED. LEFT GROIN INCISION C/D/I. NO HEMATOMA NOTED. VSS. PRN PAIN MED GIVEN FOR RIGHT GROIN PAIN. IN OR AT THIS TIME FOR I&D.
--- NOTE | 2020-03-08 19:37 | NUR ---
ORDERS GIVEN TO RESTART HEPARIN GTT AFTER 3HOURS POST SURGERY PER DR. MENDOZA. REPORT GIVEN TO THE NOC NURSE.
[2020-03-09] VITALS (16 sets, daily range): BP systolic 122–171; BP diastolic 62–88
--- NOTE | 2020-03-09 06:40 | NUR ---
SLEPT PART OF SHIFT. ASSIST UP TO BATHROOM NEEDED WITH STEADY GAIT. NO FURTHER REQUEST FOR PAIN MEDICATION. CHEST PAIN AT 2100 LAST NOC, GAVE 3 NTG AND ONE DOSE MOROPHINE WITH TOTAL RELIEF. WORKING ON GOALS AND PLAN OF CARE FOR NOC. PROGRESSING TOWARDS GOALS FOR SURGERY.
[2020-03-09 06:53] LABS: HEMATOCRIT 42.1 % (37.0-47.0); HEMOGLOBIN 14.3 gm/dL (12.0-15.0); MCH 30.3 pg (26.0-34.0); MCV 88.9 fL (80.0-100.0); RBC 4.73 mil/uL (4.20-5.00); RDW 13.2 % (10.5-14.5); WBC 9.3 thou/uL (4.0-11.0)
[2020-03-09 07:07] LABS: CALCIUM 9.3 mg/dL (8.5-10.1); CREATININE 0.9 mg/dL (0.6-1.0); POTASSIUM 4.3 mmol/L (3.5-5.1)
--- NOTE | 2020-03-09 11:40 | EKG ---
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 : 1960 Requested By: Nya Britt Order Number: [id number] MD: Arsalan Hanson Measurements Intervals [place] Rate: 79 P: 42 MS: 171 QRS: -26 QRSD: 82 T: 138 QT: 367 QTc: 421 Interpretive Statements Sinus rhythm Probable left atrial enlargement Borderline left axis deviation Borderline repolarization abnormality Compared to ECG 03/08/2020 02:10:27 No significant changes Electronically Signed On 03-09-2020 11:40:31 CDT by Arsalan Hanson [email or web address] <ELECTRONICALLY SIGNED> By: Arsalan Hanson MD 03/09/20 1140 1002 1002 Arsalan Hanson MD /EPI
--- NOTE | 2020-03-09 13:20 | CATHLAB ---
[facility] [place] [address] INVASIVE PROCEDURE REPORT Name: MAICO ESCALONA Room #: 210-P ADM IN M.R.#: [id number] Admission: 03/06/20 Attend Phys: Nya Britt MD Discharge: Date of : 58 Report #: [id number] THIS REPORT FOR: cc: FAM - No family physician/PCP FAM - No family physician/PCP Solis Puri MD [facility] ~ APPROVED REPORT Study performed: 03/09/2020 11:49:31 Patient Details Patient Status: In-Patient Room #: The patient is a 59 year-old female Event Personnel Solis Puri Mine Analyst, Jayme Thompson RN, Eufemia Mejia Monitor, Huseyin De Anda RTR Scrub Procedures Performed Art Access - L femoral artery* GOLDY Place w/wo Plasty Single RCA [id number] 71517 Initial Mod Sed Same Phys/QHP Gr5y 414501 62658 Mod Sed Same Phys/QHP Ea 165056 Hemostasis w/ Mynx Indication Chest pain Procedure Narrative The LFG (20ML.)^ was infiltrated with subcutaneous anesthesia. A PINNACLE 6FR Sheath #[id number] sheath was inserted into the LFA^. Coronary angiography was performed using coronary diagnostic catheters. The patient tolerated the procedure well and there were no complications associated with the procedure. Intraoperative Conscious Sedation Fentanyl mcg Versed mg Fluoro Time: 638.00 minutes Dose: DAP 4401.60 cGycm2 Contrast Type and Amount: Omnipaque 95 ml Coronary Angiography The patient's coronary anatomy is right dominant. Diagnostic Cath [facility] [address] [address] INVASIVE PROCEDURE REPORT Name: MAICO ESCALONA Room #: 210-P ADM IN M.R.#: [id number] Admission: 03/06/20 Attend Phys: Charlene Condon Discharge: Date of : 58 Report #: [id number] Right Coronary Dominant right coronary with 99% distal right coronary stenosis Mild mid vessel plaquing R PDA Fairly small posterior descending with mild proximal plaquing RPLV Fairly large bifurcating posterior lateral branch with mild intrastent plaquing Hemodynamics The aortic pressure is 145/67 mmHg with a mean of 88 mmHg. PCI Technique Lesion Anticoagulation was achieved with Heparin, Integrilin. Patient was preloaded with Plavix. Percutaneous coronary intervention was performed on the mistal right coronary artery. The lesion stenosis prior to intervention was 99% with DEMETRIUS flow. A LAUNCHER 6FR JR 4 #[id number] Guide Catheter was used to engage the RCA ostium. A Luge Wire .014 x 182CM #[id number] Interventional Guidewire was used to cross the lesion. BALLOON DILATION A Balloon catheter Euphora RX 2.5 x 12 #[id number] was inserted and inflated up to 8.00atm for 27seconds. STENT DEPLOYMENT A stent RESOLUTE EYAD RX 3.0 X 12 #[id number] was inserted and inflated up to 12.00atm for 35seconds. POST STENT DEPLOYMENT BALLOON DILATION A Balloon catheter Euphora NC RX 3.0 x 12 #[id number] was inserted and inflated up to 18.00atm for 34seconds. Final angiography reveals 0 % stenosis with DEMETRIUS 3 flow. Conclusion 1. Dominant right coronary with severe 99% distal stenosis before the origin of the posterior descending and posterolateral branches 2. Successful stenting of the distal right coronary with a 3.0 x 12 mm Resolute stent, postdilated to 3.1 mm <ELECTRONICALLY SIGNED> By: Solis Puri MD, FACC 03/09/20 1320 19 19 Solis Puri MD, FACC /INF
--- NOTE | 2020-03-09 15:10 | NUR ---
CONSULTED TO PLACE A PICC FOR A PATIENT NEEDING ADDITIONAL ACCESS- A MIDLINE WAS ORDERED BUT DISCUSSED WITH THE PATIENT AND THE NURSE ABOUT THE NEED FOR PICC ACCESS. ORDER AND CONSENT OBTAINED. A #5F TRIPLE LUMEN POWEWR PICC WAS PLACED PER HOSPITAL POLICY AFTER A BEDSIDE TIMEOUT WAS COMPLETED. THE PICC WAS TRIMMED TO 42CM AND ADVANCED WITHOUT DIFFICULTY. A STAT CHEST XRAY SUGGESTED LINE IN [facility]. LINE WITHDREW 3CM AND RELEASED FOR USE
[2020-03-10] VITALS (7 sets, daily range): BP systolic 145–179; BP diastolic 69–84
--- NOTE | 2020-03-10 03:45 | NUR ---
SLEPT MOST OF SHIFT. UP AD OLVIN WITH STEADY GAIT. POST CATH CHECKS WITHOUT PROBLEMS. SEROUS SANGANOUS FLUID FROM VULVA INCISION WITH PACKING AND ABD DRESSING. WORKING ON GOALS AND PLAN OF CARE FOR NOC. PROGRESSING TOWARDS DISCHARGE GOALS SLOWLY. PICC LINE FOR ANTIBIOTICS. DENIES COMPLAINTS OF CHEST PAIN THIS SHIFT. STATES FEELING BETTER. HYDROCODONE GIVEN PRN FOR COMPLAINTS OF PAIN WITH NOTED RELIEF. CONTINUE TO ASSES TUNG.
[2020-03-10 05:18] LABS: HEMATOCRIT 35.3 % (37.0-47.0); MCH 30.3 pg (26.0-34.0); MCHC 34.1 g/dL (28.0-37.0); MCV 88.9 fL (80.0-100.0); RBC 3.97 mil/uL (4.20-5.00); RDW 12.9 % (10.5-14.5); WBC 9.8 thou/uL (4.0-11.0)
[2020-03-10 05:28] LABS: ALBUMIN 2.6 g/dL (3.4-5.0); ANION GAP 8 mmol/L (7-16); BUN 18 mg/dL (7-18); CALCIUM 8.5 mg/dL (8.5-10.1); CHLORIDE 107 mmol/L (98-107); CO2 27 mmol/L (21-32); GLUCOSE 193 mg/dL (74-106); SGOT 12 U/L (15-37); SGPT 16 U/L (30-65); SODIUM 142 mmol/L (136-145); TOTAL BILIRUBIN 0.2 mg/dL (0.2-1.0); TOTAL PROTEIN 6.3 g/dL (6.4-8.2); TROPONIN-I <0.06 ng/mL (<0.06)
--- NOTE | 2020-03-10 10:19 | EKG ---
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 : 1960 Requested By: Solis Puri Order Number: [id number] MD: Solis Puri Measurements Intervals [place] Rate: 63 P: 3 VA: 167 QRS: -21 QRSD: 83 T: 159 QT: 419 QTc: 429 Interpretive Statements Sinus rhythm Borderline left axis deviation Abnormal T, consider ischemia, lateral leads Compared to ECG 03/09/2020 10:02:17 No significant change was found Electronically Signed On 03-10-2020 10:18:56 CDT by Solis Puri [email or web address] <ELECTRONICALLY SIGNED> By: Solis Puri MD, [facility] 03/10/20 1018 1348 1348 Solis Puri MD, FAC /EPI
--- NOTE | 2020-03-10 10:31 | EKG ---
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 : 1960 Requested By: Solis Puri Order Number: [id number] MD: Solis Puri Measurements Intervals [place] Rate: 67 P: 31 [place]: 161 QRS: -27 QRSD: 83 T: 171 QT: 386 QTc: 408 Interpretive Statements Sinus rhythm Borderline left axis deviation Abnormal R-wave progression, late transition Nonspecific T abnormalities, diffuse leads Compared to ECG 03/09/2020 13:48:54 T-wave abnormality still present Electronically Signed On 03-10-2020 10:31:23 CDT by Solis Puri [email or web address] <ELECTRONICALLY SIGNED> By: Solis Puri MD, FAC 03/10/20 1031 0735 0735 Solis Puri MD, FAC /EPI
--- NOTE | 2020-03-10 16:03 | NUR ---
ASSESSMENT CHARTED. PT ALERT AND ORIENTED. VSS. PRN PAIN MED GIVEN FOR GROIN PAIN WITH PARTIAL RELIEF. WOUND CARE PROVIDED. IV ABX GIVEN ORDERED. NO CARDIAC DISTRESS NOTED. WILL CONTINUE TO MONITOR.
[2020-03-11 04:04] VITALS: BP 145/54
--- NOTE | 2020-03-11 06:23 | NUR ---
SLEPT ON AND OFF THIS SHIFT. STATES PAIN HAS BEEN HIGHER TONIGHT AND HAS REQUIRED PAIN MEDICATIONS Q4H THIS SHIFT. UP AD OLVIN TO BATHROOM WITH STEADY GAIT. WORKING ON GOALS AND PLAN OF CARE FOR NOC. MAINTAIN IV ANTIBIOTICS PER PICC LINE ORDERED. PROGRESSING SLOWLY TOWARDS DISCHARGE GOALS. DENIES COMPLAINTS OF CHEST PAIN SINCE STENT PLACEMENT. CONTINUE TO ASSESS.
[2020-03-11 07:30] VITALS: BP 162/80
[2020-03-11] MEDS ORDERED: ASPIR 8181 MG PO (08:55)
[2020-03-11] MEDS ORDERED: CLOPIDOGREL75 MG PO (08:55)
[2020-03-11 11:15] VITALS: BP 155/71
[2020-03-11] MEDS ORDERED: MUPIROCIN22 GM NASAL (12:44)
[2020-03-11] MEDS ORDERED: BACTRIM DS TAB1 EAC1 PO (12:44)
[2020-03-11] MEDS ORDERED: HUMALOG100 UNIT/1 SUBQ (12:44)
[2020-03-11] MEDS ORDERED: METOPROLOL SUCC50 MG PO (12:44)
[2020-03-11] MEDS ORDERED: HYDROCODON-ACE1 EAC7 PO (13:34)
[2020-03-11] MEDS ORDERED: LIPITOR80 MG PO (13:34)
[2020-03-11] MEDS ORDERED: NITROGLYCERIN0.4 MG SUBLING (13:34)
[2020-03-11] MEDS ORDERED: IMDUR 60 MG TAB60 M1 PO (13:34)
[2020-03-11] MEDS ORDERED: LANTUS SUBQ (13:34)
[2020-03-11 15:20] VITALS: BP 152/89; BP 155/71
--- NOTE | 2020-03-11 15:28 | NUR ---
PATIENT TO DC HOME TODAY. SHE DOES NOT HAVE INSURANCE. SHE REPORTS STRUGGLING WITH [employer] APPLYING FOR DISABILITY. SHE REPORTS CLOSE TO [employer] AND SHE NEEDED TO OBTAIN SUBSTATIAL AMOUNT OF MONEY FOR RENT. SHE IS REQUESTING ASSISTANCE WITH MEDICATIONS SHE IS ANXIOUS REGARDING HER MEDICATIONS. REC FROM ISMAEL LAZARO CAN VOUCH FOR PRESCRITIONS IN AMOUT OF $951.23. UPDATED PATENT CAN ASSIST ONE TIME. CAN ASSIST ONLY 30 DAY AMOUNT. PATIENT AWARE. GAVE SAFETY NET CLINIC INFORMATION AND [facility] INFO. ENCOURAGED TO F/U WITH CLINICS.
--- NOTE | 2020-03-11 16:44 | NUR ---
ASSESSMENT CHARTED. PT ALERT AND ORIENTED. VSS. PRN PAIN MED GIVEN WITH PARTIAL RELIEF. SEEN BY DR. HALL AND DR. GARAY. ORDERS GIVEN TO DISCHARGE PT TO HOME. DISCHARGE INSTRUCTIONS GIVEN TO PT. PT VERBERLISED UNDERSTANDING.
--- NOTE | 2020-03-13 16:45 | HC ---
[facility] [place] [address] CONSULTATION Name: MAICO ESCALONA Room #: 210-P [facility] IN M.R.#: [id number] Admission: 03/06/20 Attend Phys: Nya Britt MD Discharge: 03/11/20 Date of : 58 Report #: [id number] THIS REPORT FOR: cc: ATIF - No family physician/PCP ATIF - No family physician/PCP Richard Soria MD ~ CC: Nya SRIVASTAVA physician/PCP DATE OF SERVICE: 03/08/2020 We were asked by Dr. Puri to see the patient. HISTORY OF PRESENT ILLNESS: The patient is a 59-year-old with coronary artery disease. The patient presents with unstable angina and non-STEMI. Cardiac catheterization today demonstrates severe 3-vessel coronary artery disease including diffuse LAD stenosis as well as high-grade right coronary lesion at the crux before bifurcation into the PDA and posterolateral branches and circumflex and diagonal lesions. Left ventricular function is satisfactory, however. The patient has a history of previous stent placement with several episodes of stent placement including one last December at [facility]. The patient tells me at the time that she was turned down for cardiac surgery because of "friable tissues." PAST MEDICAL HISTORY: Significant for diabetes mellitus, not well controlled at home, hypertension and hyperlipidemia. FAMILY HISTORY: Positive for coronary artery disease and diabetes. 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 She has been COVID negative. The patient is a former smoker, but quit in 1991. MEDICATIONS: Include metoprolol, lisinopril, insulin. ALLERGIES: None known. REVIEW OF SYSTEMS: CONSTITUTIONAL: Denies fever or chills. EYES: Denies visual change. HEENT: Denies headache, hearing changes, ear pain, nasal discharge. RESPIRATORY: Denies cough, sputum production. CARDIAC: As mentioned, unstable angina, no palpitations. GASTROINTESTINAL: No nausea, vomiting, diarrhea. GENITOURINARY: No urgency, frequency, or blood. [facility] [address] [place] [address] CONSULTATION Name: MAICO ESCALONA Room #: [address] [place] [address] [place] ..#: [id number] Admission: 03/06/20 Attend Phys: Nya Britt MD Discharge: 03/11/20 Date of : 58 Report #: [id number] IMPRESSION: The patient has an infection in the groin, complains of a groin infection that was drained initially in the ER. MUSCULOSKELETAL: No bone or joint pain. SKIN: As mentioned, swelling and acute inflammatory changes in the right groin next to the vulva. NEUROLOGIC: Has some mild neuropathy, but no specific motor or sensory dysfunction. PHYSICAL EXAMINATION: GENERAL: The patient is lying in bed after her cardiac catheterization without discomfort. VITAL SIGNS: Temperature 36.9, pulse rate 74, respiratory rate 12, blood pressure 130/67. HEENT: No scleral icterus, no arcus. NECK: No mass, no bruit. CHEST: Clear to auscultation. HEART: Rhythm regular. I hear no murmurs. ABDOMEN: Protuberant, mildly obese, soft, no mass, no tenderness. EXTREMITIES: No clubbing, cyanosis or edema. VASCULAR: No obvious saphenous vein problems, 2+ dorsalis pedis pulses. SKIN: Warm, red, swollen area medial to the groin on the right side, contiguous with the vulva. PSYCHIATRIC: Pleasant lady oriented x 3. Shows insight into problems. ASSESSMENT AND PLAN: The patient has severe 3-vessel coronary artery disease with diffuse involvement of the LAD. The risks of surgery would include bleeding, infection, anesthesia risks, heart problems, lung problems, stroke and , increased risk of infection, particularly if we need to operate with a coexisting infection. The benefit of surgery would be attenuated by the important and diffuse LAD disease making a single bypass to that area less effective than one would hope. Surgery was contrasted with angioplasty, which would generally not be recommended in a patient with multivessel disease and diabetes, but I suspect that this is the reason that the patient was turned down for surgery at [facility] previously. Thank you for the consult. I will speak with Dr. Puri about this in more detail and discuss options again with the patient. Certainly at the outset, the infection needs to be cleared before we would go to the operating room. Thank you for the consult. <ELECTRONICALLY SIGNED> By: Richard Soria MD 03/13/20 1645 1014 1030 Richard Soria MD /nt
== END 2020-03-11 17:14 | disposition home or self-care (01) | DRG 247 ==
LOC: ER 17:52 → EROBS 20:53 → 2N 20:53 → EROBS 03-07 09:07 → 2N 03-07 16:13
PROVIDERS: Emergency Medicine; Hospitalist; Internal Medicine; Nurse Practitioner Adult Health; Nurse Practitioner Family; ADMIT Hospitalist; ATTEND Hospitalist
PROC: 0Y953ZZ Drainage of Right Inguinal Region, Percutaneous Approach (ICD-10-PCS; principal; 2020-03-06)
PROC: 0U9M0ZZ Drainage of Vulva, Open Approach (ICD-10-PCS; principal; 2020-03-06)
PROC: B2111ZZ Fluoroscopy of Multiple Coronary Arteries using Low Osmolar Contrast (ICD-10-PCS; 2020-03-08)
PROC: 4A023N7 Measurement of Cardiac Sampling and Pressure, Left Heart, Percutaneous Approach (ICD-10-PCS; 2020-03-08)
PROC: B2151ZZ Fluoroscopy of Left Heart using Low Osmolar Contrast (ICD-10-PCS; 2020-03-08)
PROC: 4A023N7 Measurement of Cardiac Sampling and Pressure, Left Heart, Percutaneous Approach (ICD-10-PCS; 2020-03-09)
PROC: 02C03ZZ Extirpation of Matter from Coronary Artery, One Artery, Percutaneous Approach (ICD-10-PCS; 2020-03-09)
PROC: B2151ZZ Fluoroscopy of Left Heart using Low Osmolar Contrast (ICD-10-PCS; 2020-03-09)
PROC: B2111ZZ Fluoroscopy of Multiple Coronary Arteries using Low Osmolar Contrast (ICD-10-PCS; 2020-03-09)
PROC: 027034Z Dilation of Coronary Artery, One Artery with Drug-eluting Intraluminal Device, Percutaneous Approach (ICD-10-PCS; 2020-03-09)
DX: I21.4 Non-ST elevation (NSTEMI) myocardial infarction (principal); L02.214 Cutaneous abscess of groin; N76.4 Abscess of vulva; E11.9 Type 2 diabetes mellitus without complications; I25.10 Atherosclerotic heart disease of native coronary artery without angina pectoris; I10 Essential (primary) hypertension; Z20.828 Contact with and (suspected) exposure to other viral communicable diseases; E78.5 Hyperlipidemia, unspecified; F17.210 Nicotine dependence, cigarettes, uncomplicated; Z95.5 Presence of coronary angioplasty implant and graft; Z79.4 Long term (current) use of insulin; Z79.891 Long term (current) use of opiate analgesic; Z79.899 Other long term (current) drug therapy; Z83.3 Family history of diabetes mellitus; Z82.49 Family history of ischemic heart disease and other diseases of the circulatory system; I25.2 Old myocardial infarction; Z91.14 Patient's other noncompliance with medication regimen; Z79.82 Long term (current) use of aspirin
CPT/HCPCS: 10081; 27000; 50010; 50101; 50386; 62110; 62900; 70005